=== PATIENT | female | born 1970 | race Hispanic/Latino ===

== ENCOUNTER 2022-05-22 11:30 | Emergency (ER) | payer SELFPAY ==
[~2022-05-22] VITALS: Ht 160 cm; Wt 74.8 kg
[~2022-05-22 11:30] MED LIST: BACI1PAC9 TP; CYCL-309 PO; IBUP-1493 PO
[2022-05-22 12:03] VITALS: BP 128/81
[2022-05-22 13:02] LABS: EOSINOPHILS % (AUTO) 3.3 % (0.0-8.0); HEMATOCRIT 35.5 % (36-48); LYMPHOCYTES % (AUTO) 26.5 % (21.0-51.0); MEAN CORPUSCULAR HEMOGLOBIN 29.6 pg (27.0-33.0); MEAN CORPUSCULAR HGB CONC 33.5 g/dL (32.0-36.0); MEAN CORPUSCULAR VOLUME 88.3 fL (79-99); MONOCYTES % (AUTO) 5.5 % (3.0-13.0); NEUTROPHILS % (AUTO) 63.4 % (40.0-77.0); PLATELET COUNT (AUTO) 287 K/uL (130-400); RED BLOOD CELL COUNT(AUTO) 4.02 MIL/uL (4.00-5.50); RED CELL DISTRIBUTION WIDTH 13.2 % (11.0-15.5); WHITE BLOOD COUNT (AUTO) 8.7 K/uL (4.8-10.8)
[2022-05-22 13:14] LABS: CREATININE 1.3 mg/dL (0.5-1.5); POTASSIUM 4.8 mmol/L (3.5-5.1)
[2022-05-22 13:19] LABS: ALBUMIN 3.5 g/dL (3.5-5.0); TOTAL PROTEIN, SERUM 7.7 g/dL (6.0-8.3)
[2022-05-22] MEDS ORDERED: CEFTRIAXONE 2GM VIAL IVP ONE (17:30)
[2022-05-22] MEDS ORDERED: IBUPROFEN 600 MG TABLET PO ONE (17:30)
[2022-05-22] MEDS ORDERED: INSULIN HUMULIN R 100 UNIT/ML 3ML IV ONE (17:30)
[2022-05-22] MEDS ORDERED: AMOX1TAB16 PO (17:49)
[2022-05-22] MEDS ORDERED: SULF1TAB42 PO (17:49)
== END 2022-05-22 18:23 | disposition home or self-care (01) ==
LOC: EDH 11:30
DX: L97.529 Non-pressure chronic ulcer of other part of left foot with unspecified severity (principal); E11.9 Type 2 diabetes mellitus without complications; E78.00 Pure hypercholesterolemia, unspecified; I10 Essential (primary) hypertension; Z90.49 Acquired absence of other specified parts of digestive tract; Z79.1 Long term (current) use of non-steroidal anti-inflammatories (NSAID); Z79.2 Long term (current) use of antibiotics; Z79.899 Other long term (current) drug therapy
CPT/HCPCS: 99284; 96374; 96375; 80053; 85025; 36415; 73630; J1815; J0696

== ENCOUNTER 2022-07-25 11:42 | Emergency (ER) | payer OTHER ==
[~2022-07-25] VITALS: Ht 152.4 cm; Wt 74.8 kg
[~2022-07-25 11:42] MED LIST changes: +AMOX1TAB16 PO; +SULF1TAB42 PO
[2022-07-25 12:14] LABS: HEMATOCRIT 35.2 % (36-48); MEAN CORPUSCULAR HEMOGLOBIN 29.5 pg (27.0-33.0); MEAN CORPUSCULAR HGB CONC 33.8 g/dL (32.0-36.0); MEAN CORPUSCULAR VOLUME 87.1 fL (79-99); RED BLOOD CELL COUNT(AUTO) 4.04 MIL/uL (4.00-5.50); RED CELL DISTRIBUTION WIDTH 13.5 % (11.0-15.5); WHITE BLOOD COUNT (AUTO) 8.3 K/uL (4.8-10.8)
[2022-07-25 12:31] LABS: POTASSIUM 3.9 mmol/L (3.5-5.1)
[2022-07-25 12:34] LABS: APPEARANCE,URINE CLEAR (CLEAR); BILIRUBIN,URINE NEGATIVE (NEGATIVE); COLOR,URINE COLORLESS (YELLOW); GLUCOSE, URINE (UA) >=1000 mg/dL (NEGATIVE); KETONES,URINE NEGATIVE (NEGATIVE); LEUKOCYTE ESTERASE ,URINE NEGATIVE Leu/uL (NEGATIVE); NITRATE,URINE NEGATIVE (NEGATIVE); OCCULT BLOOD,URINE SMALL (NEGATIVE); PROTEIN,URINE 300 mg/dL (NEGATIVE); UROBILINOGEN,URINE 0.2 mg/dL (0.2-1.0)
[2022-07-25 12:36] LABS: TOTAL PROTEIN, SERUM 7.4 g/dL (6.0-8.3)
[2022-07-25 12:37] LABS: SQUAMOUS EPITHELIAL CELL,UR FEW /HPF (0-2)
[2022-07-25] MEDS ORDERED: MORPHINE 4 MG SYG IVP ONE (14:30)
[2022-07-25] MEDS ORDERED: ONDANSETRON 4MG INJ ONE (15:02)
[2022-07-25] MEDS ORDERED: ONDANSETRON 4MG INJ IVP ONE ×2 (15:30→18:30)
[2022-07-25] MEDS ORDERED: LABETALOL 20MG SYG IV ONE (18:00)
[2022-07-25] MEDS ORDERED: 0.9% NACL 500ML IV.SOLN 500 ML IV ONE (18:00)
[2022-07-25] MEDS ORDERED: INSULIN HUMULIN R 100 UNIT/ML 3ML IV ONE (18:00)
[2022-07-25] MEDS ORDERED: IOHEXOL 350 MG/ML 100ML INFUS..BTL IV ONE (19:17)
[2022-07-25] MEDS ORDERED: SOLU-MEDROL 125MG VIAL ONE (19:22)
[2022-07-25] MEDS ORDERED: SOLU-MEDROL 125MG VIAL IVP ONE (19:30)
[2022-07-25 21:12] VITALS: BP 154/82
[2022-07-25] MEDS ORDERED: PRED20TA3 PO (21:17)
[2022-07-25] MEDS ORDERED: LISI10TA24 PO (21:17)
== END 2022-07-25 21:52 | disposition home or self-care (01) ==
LOC: EDH 11:42
DX: I10 Essential (primary) hypertension (principal); M31.6 Other giant cell arteritis; E11.9 Type 2 diabetes mellitus without complications; E78.00 Pure hypercholesterolemia, unspecified; Z90.49 Acquired absence of other specified parts of digestive tract; Z79.899 Other long term (current) drug therapy; Z98.890 Other specified postprocedural states
CPT/HCPCS: 99285; 70496; 96374; 96375; 71045; 84484 ×2; 80053; 83880; 85027; 85651; 81001; 36415; 70498; 93005 ×2; 96376; 70450; J1815; J7040; J2930; J2405 ×2; J2270; Q9967